=== PATIENT | female | born 1990 | race Caucasian/White ===

== ENCOUNTER 2020-05-09 07:08 | Inpatient (IN) | payer BC, OTHER ==
[2020-05-09 08:15] LABS: Absolute Lymphocytes (CBC) 1.9 K/uL (0.7-4.9); Basophils % 0.6 % (0-1.3); Hematocrit 41.1 % (36.0-45.0); Lymphocytes % 25.7 % (15.3-44.8); MPV 9.8 fL (7.6-11.3); RBC Red Blood Cell Count 4.58 M/uL (3.86-4.86)
[2020-05-09 08:21] LABS: ALT/SGPT 24 U/L (12-78); AST/SGOT 16 U/L (15-37); Albumin 3.3 g/dL (3.4-5.0); Alkaline Phosphatase 115 U/L (45-117); BUN Blood Urea Nitrogen 15 mg/dL (7-18); Bicarbonate 28 mmol/L (21-32); Bilirubin Total 0.5 mg/dL (0.2-1.0); Glucose Level 86 mg/dL (74-106); Potassium 3.9 mmol/L (3.5-5.1); Protein, Total 7.2 g/dL (6.4-8.2); Sodium Level 143 mmol/L (136-145)
--- NOTE | 2020-05-09 08:25 | RAD REPORT ---
EXAM DESCRIPTION: Sundeep Reynolds Left05/09/2020 8:12 am CLINICAL HISTORY: Left leg pain FINDINGS: No fracture is seen. No bony lesion seen. Prominent swelling within the subcutaneous tiss ues of the mid to lower anterior leg
[2020-05-09] MEDS ORDERED: TETANUS & DIPHTHERIA TOX,ADULT 0.5 ML VIAL ONE (08:26)
--- NOTE | 2020-05-09 08:40 | ER ---
Nurse's Notes [facility] Name: Helena Frias Age: 29 yrs Sex: Female : 1990 Arrival Date: 05/09/2020 Time: 07:16 Bed 13 Private MD: Diagnosis: Cellulitis of left lower limb;Left Lower Leg Hematoma Presentation: 05/09 07:40 Chief complaint: Patient states: fell on some stairs 2 weeks ago, injured her left leg, iw has large hematoma with redness, swelling present. Coronavirus screen: At this time, the client does not indicate any symptoms associated with coronavirus-19. Ebola Screen: Patient negative for fever greater than or equal to 101.5 degrees Fahrenheit, and additional compatible Ebola Virus Disease symptoms Patient denies exposure to infectious person. Patient denies travel to an Ebola-affected area in the 21 days before illness onset. No symptoms or risks identified at this time. Initial Sepsis Screen: Does the patient meet any 2 criteria? No. Patient's initial sepsis screen is negative. Does the patient have a suspected source of infection? No. Patient's initial sepsis screen is negative. Risk Assessment: Do you want to hurt yourself or someone else? Patient reports no desire to harm self or others. Onset of symptoms was April 25, 2020. 07:40 Method Of Arrival: Wheelchair iw 07:40 Acuity: JUDITH 3 iw Triage Assessment: 07:20 General: Appears in no apparent distress. comfortable, Behavior is calm, cooperative. rb1 General: Pt. reports that she finished her Amoxicillin and Steroids yesterday.. EENT: Eyes Has bruising and a stitch on the right eye, from a fall two weeks ago.. Neuro: Level of Consciousness is awake, alert, obeys commands, Oriented to person, place, time, situation. Cardiovascular: Capillary refill < 3 seconds. Respiratory: Airway is patent Respiratory effort is even, unlabored, Respiratory pattern is regular, symmetrical, Denies cough, shortness of breath. GI: Patient currently denies diarrhea, nausea, vomiting. : No signs and/or symptoms were reported regarding the genitourinary system. Derm: Skin is red, The wound is swollen and warm to the touch Wound noted leg alonzo. Musculoskeletal: Range of motion: intact in all extremities. Injury Description: Pt. fell down the steps two weeks ago and fractured the right optical floor and got a cut on the left alonzo. 07:20 Pain: Complains of pain in left alonzo Pain currently is 6 out of 10 on a pain scale. rb1 MANAGER CABLE: 07:20 LMP 05/02/2020 rb1 Historical: - Allergies: 07:20 No Known Allergies; rb1 - Home Meds: 07:20 None [Active]; rb1 - PMHx: 08:32 Intellectually Disabled; rb1 09:35 Fractured Right Orbital Floor; iw - PSHx: 07:20 Left arm; rb1 - Immunization history:: Last tetanus immunization: unknown. - Social history:: Smoking status: Patient/guardian denies using. Screenin:20 Abuse screen: Denies threats or abuse. Nutritional screening: No deficits noted. rb1 Tuberculosis screening: No symptoms or risk factors identified. Fall Risk Fall in past 12 months (25 points). No secondary diagnosis (0 pts). IV access (20 points). Ambulatory Aid- None/Bed Rest/Nurse Assist (0 pts). Gait- Normal/Bed Rest/Wheelchair (0 pts) Mental Status- Oriented to own ability (0 pts). Total Sinha Fall Scale indicates High Risk Score (45 or more points). Fall prevention measures have been instituted. Side Rails Up X 2 Placed Close to Nursing Station 1:1 Attendant Assigned Frequent Obs/Assessments Occuring Family Present and informed to notify staff if the need to leave the bedside As available patient and family educated on Fall Prevention Program and Strategies. Assessment: 07:20 General: See triage assessment. rb1 08:20 Reassessment: Patient appears in no apparent distress at this time. No changes from rb1 previously documented assessment. Mother at the bedside. 09:14 Reassessment: Faxed order for Unasyn 3 G IVPB. rb1 09:20 Reassessment: Patient appears in no apparent distress at this time. Patient and/or rb1 family updated on plan of care and expected duration. Pain level reassessed. Patient is alert, oriented x 3, equal unlabored respirations, skin warm/dry/pink. 09:56 Reassessment: Tried to call report but was left on hold. rb1 10:03 Reassessment: Patient appears in no apparent distress at this time. No changes from rb1 previously documented assessment. 10:10 Reassessment: Called report to PACO Ayala. Information from the SBAR was given. All rb1 questions asked and answered. Unasyn was sent to the floor with the pt. Vital Signs: 07:20 BP 121 / 96; Pulse 92; Resp 19; Temp 99.5; Pulse Ox 100% ; Weight 138.35 kg; Height 5 rb1 ft. 4 in. (162.56 cm); 08:20 BP 118 / 76; Pulse 86; Resp 18; Pulse Ox 100% ; rb1 09:20 BP 112 / 78; Pulse 78; Resp 17; Pulse Ox 100% ; rb1 07:20 Body Mass Index 52.35 (138.35 kg, 162.56 cm) rb1 ED Course: 07:16 Patient arrived in ED. bg2 07:19 Carly Judd PA is PHCP. jmm 07:19 Wiley Osullivan MD is Attending Physician. jmm 07:20 Arm band placed on right wrist. rb1 07:20 Patient has correct armband on for positive identification. Bed in low position. Call rb1 light in reach. Side rails up X2. Pulse ox on. NIBP on. Warm blanket given. 07:23 Angelina Rapp, RN is Primary Nurse. rb1 07:53 Inserted saline lock: 22 gauge in right antecubital area, using aseptic technique. rb1 Blood collected. 07:57 Triage completed. iw 07:59 Blood Culture Adult (2) Sent. rb1 08:13 Tib Fib Left XRAY In Process Unspecified. EDMS 08:28 US Extremity Venous Unilateral Ltd In Process Unspecified. EDMS 08:29 Ultrasound completed. Patient tolerated well. Notified ED Physician carly. sg3 08:39 Reynaldo Guerrero MD is Hospitalizing Provider. jmm 10:19 No provider procedures requiring assistance completed. Patient admitted, IV remains in rb1 place. Administered Medications: 08:25 Drug: Tetanus-Diphtheria Toxoid Adult 0.5 ml {[employer]: [employer]. Exp: rb1 10/10/2022. Lot #: [id number]. } Route: IM; Site: right deltoid; 08:40 Follow up: Response: No adverse reaction rb1 09:49 Drug: Unasyn 3 grams Route: IVPB; Infused Over: 30 mins; Site: right antecubital; rb1 10:19 Follow up: IV Status: Infusion continued upon admission rb1 Outcome: 08:40 Decision to Hospitalize by Provider. jmm 10:19 Admitted to [facility]/surg accompanied by tech, family with patient, via stretcher, room 221, rb1 with chart, Report called to PACO Ayala 10:19 Condition: stable 10:19 Instructed on the need for admit. 10:20 Patient left the ED. rb1 Signatures: Dispatcher [employer] EDMS Carly Judd PA PA jmm Williams, Irene, PACO RN iw Paulette Johnson bg2 Angelina Rapp, RN RN rb1 Benita Bruce sg3 Corrections: (The following items were deleted from the chart) 09:35 07:20 PMHx: Fractured Right Optical Floor; rb1 iw
--- NOTE | 2020-05-09 08:41 | EDPHYS ---
Physician Documentation [facility] Name: Helena Frias Age: 29 yrs Sex: Female : 1990 Arrival Date: 05/09/2020 Time: 07:16 Bed 13 Private MD: ED Physician Wiley Osullivan HPI: 05/09 07:34 This 29 yrs old Female presents to ER via Unassigned with complaints of Leg jmm Injury. 07:34 The patient presents with an injury, swelling. Onset: The symptoms/episode jmm began/occurred gradually, 2 week(s) ago. Modifying factors: The symptoms are alleviated by nothing. the symptoms are aggravated by nothing. Associated signs and symptoms: Pertinent positives: swelling, warmth, Pertinent negatives fever. This is a 29 year old female that presents to the ED with swelling to the left lower leg. Patient dell approx 2 weeks ago. Patient sustained an orbital floor fracture of the right eye and an abrasion of the left lower leg. Patient was prescribed amoxicillin. Patient has developed increased redness to the left lower leg. Denies fever. . SERGEANT OF CORRECTIONS: 07:20 LMP 05/02/2020 rb1 Historical: - Allergies: 07:20 No Known Allergies; rb1 - Home Meds: 07:20 None [Active]; rb1 - PMHx: 08:32 Intellectually Disabled; rb1 09:35 Fractured Right Orbital Floor; iw - PSHx: 07:20 Left arm; rb1 - Immunization history:: Last tetanus immunization: unknown. - Social history:: Smoking status: Patient/guardian denies using. ROS: 07:34 Constitutional: Negative for fever, chills, and weight loss, Cardiovascular: Negative jmm for chest pain, palpitations, and edema, Respiratory: Negative for shortness of breath, cough, wheezing, and pleuritic chest pain. 07:34 Skin: Positive for erythema, swelling. 07:34 All other systems are negative. Exam: 07:34 Constitutional: This is a well developed, well nourished patient who is awake, alert, jmm and in no acute distress. Head/Face: atraumatic. Eyes: EOMI, no conjunctival erythema appreciated ENT: Moist Mucus Membranes Neck: Trachea midline, Supple Chest/axilla: Normal chest wall appearance and motion. Cardiovascular: Regular rate and rhythm. No edema appreciated Respiratory: Normal respirations, no respiratory distress appreciated Abdomen/GI: Non distended, soft Back: Normal ROM 07:34 Musculoskeletal/extremity: full dorsalis pulse noted to the left leg, compartments are soft, NVI. 07:34 Skin: erythema noted to the left lower leg, draining hematoma noted, eschar with surrounding erythema noted, non tender to palpation. 07:34 Neuro: Orientation: is normal, Mentation: is normal, Memory: is normal. 07:34 Psych: Behavior/mood is pleasant, cooperative. Vital Signs: 07:20 BP 121 / 96; Pulse 92; Resp 19; Temp 99.5; Pulse Ox 100% ; Weight 138.35 kg; Height 5 rb1 ft. 4 in. (162.56 cm); 08:20 BP 118 / 76; Pulse 86; Resp 18; Pulse Ox 100% ; rb1 09:20 BP 112 / 78; Pulse 78; Resp 17; Pulse Ox 100% ; rb1 07:20 Body Mass Index 52.35 (138.35 kg, 162.56 cm) rb1 MDM: 07:28 Patient medically screened. [facility] 08:39 Data reviewed: vital signs, nurses notes. Counseling: I had a detailed discussion with belinda the patient and/or guardian regarding: the historical points, exam findings, and any diagnostic results supporting the discharge/admit diagnosis, lab results, radiology results, the need for further work-up and treatment in the hospital. ED course: I discussed the patient with Dr. Guerrero whom accepted the admission. . 05/09 07:30 Order name: CBC with Diff; Complete Time: 08:31 [facility] 05/09 07:30 Order name: CMP; Complete Time: 08:31 [facility] 05/09 07:30 Order name: Blood Culture Adult (2) [facility] 05/09 07:30 Order name: Procalcitonin; Complete Time: 08:36 [facility] 05/09 07:30 Order name: Lactate; Complete Time: 08:31 [facility] 05/09 07:30 Order name: US Extremity Venous Unilateral Ltd; Complete Time: 09:14 [facility] 05/09 07:31 Order name: Blood Culture [facility] 05/09 07:31 Order name: Tib Fib Left XRAY; Complete Time: 08:31 [facility] 05/09 07:30 Order name: Saline Lock; Complete Time: 07:58 [facility] 05/09 09:20 Order name: CONS Physician Consult EDMS Administered Medications: 08:25 Drug: Tetanus-Diphtheria Toxoid Adult 0.5 ml {Edi Consultant: [employer]. Exp: rb1 10/10/2022. Lot #: [id number]. } Route: IM; Site: right deltoid; 08:40 Follow up: Response: No adverse reaction rb1 09:49 Drug: Unasyn 3 grams Route: IVPB; Infused Over: 30 mins; Site: right antecubital; rb1 10:19 Follow up: IV Status: Infusion continued upon admission rb1 Disposition: 05/10 05:02 Co-signature as Attending Physician, Wiley Osullivan MD. [facility] Disposition: 05/09/20 08:40 Hospitalization ordered by Reynaldo Guerrero for Observation. Preliminary diagnosis are Cellulitis of left lower limb, Left Lower Leg Hematoma. - Bed requested for Telemetry/MedSurg (observation). - Status is Observation. rb1 - Condition is Stable. - Problem is new. - Symptoms are unchanged. Signatures: Dispatcher [employer] EDPR Garett Judd PA PA Jordyn Conte, PACO ANTONIO Angelina Rapp RN RN [facility] Bhargavi Blood Maurice, MD MD [facility] Corrections: (The following items were deleted from the chart) 05/09 07:32 07:31 CBC with Automated Diff ordered. EDPR EDMS 07:32 07:31 Comprehensive Metabolic Panel ordered. EDPR EDMS 07:32 07:31 Procalcitonin ordered. EDPR EDMS 07:32 07:31 Lactate ordered. EDPR EDPR 09:27 08:40 Hospitalization Ordered by Reynaldo Guerrero MD for Observation. Preliminary eb diagnosis is Cellulitis of left lower limb; Left Lower Leg Hematoma. Bed requested for Telemetry/MedSurg (observation). Status is Observation. Condition is Stable. Problem is new. Symptoms are unchanged. m 09:35 07:20 PMHx: Fractured Right Optical Floor; rb1 iw 09:42 09:27 05/09/2020 08:40 Hospitalization Ordered by Reynaldo Guerrero MD for Observation. eb Preliminary diagnosis is Cellulitis of left lower limb; Left Lower Leg Hematoma. Bed requested for Telemetry/MedSurg (observation). Status is Observation. Condition is Stable. Problem is new. Symptoms are unchanged. eb 10:20 09:42 05/09/2020 08:40 Hospitalization Ordered by Reynaldo Guerrero MD for Observation. rb1 Preliminary diagnosis is Cellulitis of left lower limb; Left Lower Leg Hematoma. Bed requested for Telemetry/MedSurg (observation). Status is Observation. Condition is Stable. Problem is new. Symptoms are unchanged. eb
--- NOTE | 2020-05-09 09:06 | RAD REPORT ---
EXAM DESCRIPTION: USExtremity Venous Uni Ltd05/09/2020 9:01 am CLINICAL HISTORY: left leg pain and swelling. COMPARISON: None. FINDINGS: Left common femoral, superficial femoral, popliteal and posterior tibial veins are compre ssible and demonstrate augmentation. Doppler demonstrates good flow. IMPRESSION: No evidence of deep venous thrombosis involving the left lower extremity.
--- NOTE | 2020-05-09 09:32 | P.HP ---
Certification for Inpatient Patient admitted to: Observation With expected LOS: <2 Midnights Practitioner: I am a practitioner with admitting privileges, knowledge of patient current condition, hospital course, and medical plan of care. Services: Services provided to patient in accordance with Admission requirements found in Title 42 Section 412.3 of the Code of Federal Regulations Patient History Date of Service: 05/09/20 Reason for admission: LLE hematoma, concern for infection History of Present Illness: 29yo female, PMH: obesity, ANA M, developmental delay who presents to the ED with concern for enlarging left lower extremity hematoma. The mom reports over the past several days it has been getting larger and a slow progression of the redness around it. Patient reports that has been some mild discomfort due to the swelling. She denies fevers, chills, fatigue. She reportedly fell 2 weeks ago and suffered a right orbital floor fracture for which she has seen a surgeon in [place] and a left lower extremity abrasion/hematoma. She reports she was told that it would go away on its own, however recently gotten larger. She sent photos to a family member who is a PA who recommended presentation to the ED. In the ED, she was noted to be afebrile, no leukocytosis, negative per calcitonin, lactate: 1.3, labwork rather unremarkable. An x-ray was obtained and there is no fracture seen. The venous Doppler was performed which showed no evidence of DVT. Dr. Pires, General Surgery, was consulted in the ED. Patient will be a brought in under observation for further management. Home medications list reviewed: Yes - Past Medical/Surgical History Diabetic: No -: ANA M -: Obesity -: Developmental Delay -: Right elbow surgery - Family History Family History: Reviewed- Non-Contributory (no h/o bleeding disorders) - Social History Smoking Status: Never smoker Alcohol use: No Place of Residence: Home Review of Systems 10-point ROS is otherwise unremarkable Physical Examination - Physical Exam General: Alert, In no apparent distress, Oriented x3, Obese HEENT: Mucous membr. moist/pink, Sclerae nonicteric Neck: No LAD Respiratory: Clear to auscultation bilaterally, Normal air movement Cardiovascular: Regular rate/rhythm, Normal S1 S2 Gastrointestinal: Soft and benign, Non-distended, No tenderness Musculoskeletal: No tenderness Integumentary: Other (LLE: anterior lower leg: large 10cm x 4cm eschar with surrounding hematoma and slight +blanching erythema. no added warmth compared to RLE / surrounding skin. Recent dried dark red blood noted on lateral leg from corner of eschar.) - Studies Laboratory Data (last 24 hrs) 05/09/20 07:53: Sodium 143, Potassium 3.9, BUN 15, Creatinine 0.54 L, Glucose 86, Total Bilirubin 0.5, AST 16, ALT 24, Alkaline Phosphatase 115 05/09/20 07:53: WBC 7.4, Hgb 13.9, Hct 41.1, Plt Count 271 Assessment and Plan - Advance Directives Does patient have a Living Will: No Does patient have a Durable POA for Healthcare: No Physician Review Additional Text: LLE hematoma, possible infection ANA M Developmental delay LLE hematama, possible infection -general surgery consulted, for possible evacuation. Okay to have a diet for now -unclear erythema is due to inflammation versus evolving infection, SIRS 0/4 -received Unasyn in the ED, can continue for now. No significant risk factors for MRSA, was seen in the ED 2 weeks ago ANA M -CPAP overnight Developmental delay - stable Dispo: pending surgical evaluation / possible evacuation/debridement of hematoma Time Spent Managing Pts Care (In Minutes): 45
[2020-05-09] MEDS ORDERED: AMPICILLIN/SULBACT 3 GM in NA CHLORIDE 0.9% 100 ML IVPB ONE (10:00)
[2020-05-09 10:53] VITALS: BMI 52.3
[2020-05-09] MEDS ORDERED: ACETAMINOPHEN 500 MG TAB PO PRN (11:10)
--- NOTE | 2020-05-09 13:25 | CON ---
Date of Consultation: 05/09/2020 Diagnoses: Cellulitis and infected hematoma with abscess in the left lower extremity. History Of Present Illness: This is the case of a 29-year-old patient. She stated about 2 weeks ago she hit a gate that she has in her hallway at home and developed a contusion of the left anterior le g. This developed into a swelling of the last 2 weeks ago with what looks like is infected hematoma with necrotic skin in front of it. It is an area about 15 x 12 cm. Since it was getting redder, she decided to come to the ER today. Admitted for IV antibiotics and a surgical consult was obtained fo r possible debridement. Past Medical History: Include intellectual disabilities. She has a fracture of the right orbit. Allergies: NONE. Medications: She does not remember any. Family History: Noncontributory. Review of Systems: Ten points otherwise unremarkable. Physical Examination: General: The patient is awake and alert. HEENT: Pupils are equal and reactive, anicteric. Neck: Supple. Chest: Clear. Abdomen: Soft and depressible. Extremities: Bilateral pulses present. Although, in the anterior leg region, patient has an area of necrotic of the skin in about 15 x 12 cm, what it looked like a combination of infected hematoma wit h abscess in the anterior tibial region. All that it going to need to be debrided. Imaging: Tibia and fibula x-rays interpreted by Dr. Tamayo as no fracture. Assessment: This is a 29-year-old patient with a left anterior leg infected hematoma, necrotic wound need debridement with benefits, alternatives, and risks including, but not limited to infection, ble eding, damage to adjacent structures, anesthesia complication, nonhealing wound, DE, and . She also understands this may not relieve the symptoms. She will require wound care for the next few mon ths. PATRICIO/MODL Voice ID: [id number] Report ID: [id number]
[2020-05-09] MEDS: AMPICILLIN/SULBACT 3 GM in NA CHLORIDE 0.9% 100 ML IVPB SCH (16:41)
[2020-05-10] MEDS: AMPICILLIN/SULBACT 3 GM in NA CHLORIDE 0.9% 100 ML IVPB SCH ×2 (00:40→07:51)
[2020-05-10 06:50] LABS: Absolute Lymphocytes (CBC) 1.8 K/uL (0.7-4.9); Basophils % 0.6 % (0-1.3); Hematocrit 40.6 % (36.0-45.0); Lymphocytes % 22.9 % (15.3-44.8); MPV 9.6 fL (7.6-11.3); RBC Red Blood Cell Count 4.52 M/uL (3.86-4.86)
[2020-05-10 07:00] LABS: BUN Blood Urea Nitrogen 16 mg/dL (7-18); Bicarbonate 27 mmol/L (21-32); Glucose Level 91 mg/dL (74-106); Magnesium 2.3 mg/dL (1.8-2.4); Phosphorus 3.1 mg/dL (2.5-4.9); Potassium 4.3 mmol/L (3.5-5.1); Sodium Level 141 mmol/L (136-145)
[2020-05-10] MEDS ORDERED: VANCOMYCIN 2 GM in NA CHLORIDE 0.9% 500 ML IVPB SCH (09:00)
[2020-05-10] MEDS ORDERED: Ringers Lactate 1,000 ML IV ONE (11:11)
--- NOTE | 2020-05-10 11:25 | P.PN ---
Subjective Date of Service: 05/10/20 Chief Complaint: LLE hematoma, concern for infection Subjective: No new changes (slight bloody drainage from LLE this morning after she got out of shower no new complaints) Physical Examination - Vital Signs Temperature: 97.7 F Blood Pressure: 106/67 Pulse: 83 Respirations: 20 Pulse Ox (%): 100 - Physical Exam General: Alert, In no apparent distress, Obese HEENT: Sclerae nonicteric Respiratory: Clear to auscultation bilaterally, Normal air movement Cardiovascular: Regular rate/rhythm, Normal S1 S2 Gastrointestinal: Soft and benign, Non-distended, No tenderness Integumentary: Other (LLE: large hematoma with surrounding erythema on anterior aspect. no active drainage) Neurological: Normal speech, Normal affect Assessment & Plan Physician Review Additional Text: LLE hematoma, possible infection, failed outpatient therapy ANA M Developmental delay LLE hematama, possible infection, failed outpatient therapy -general surgery consulted, for OR today -possible abscess -unclear erythema is due to inflammation versus evolving infection, SIRS 0/4 on admission -received Unasyn in ED, Blood cultures 4/4 positive for gram positive cocci in clusters -recently on amoxicillin, will give vancomycin until final cultures ANA M -CPAP as needed Developmental delay - stable Dispo: OR today, awaiting final cultures, likely dc home tomorrow Time Spent Managing Pts Care (In Minutes): 25
[2020-05-10] MEDS ORDERED: FENTANYL CITR 100 MCG/2 ML ONE (11:40)
[2020-05-10] MEDS ORDERED: MIDAZOLAM HCL 2 MG/2 ML INJ ONE (11:40)
[2020-05-10] MEDS ORDERED: propofoL 200 MG/20 ML VIAL IV ONE (11:40)
[2020-05-10] MEDS ORDERED: LIDOCAINE 1% MPF 5 ML VIAL ONE (11:41)
--- NOTE | 2020-05-10 12:30 | P.BOP ---
Preoperative diagnosis: left leg necrotic wound with cellulitis, abscess Postoperative diagnosis: same Primary procedure: incision drainage and debridement down to muscle of necrotic left leg wound Secondary procedure: 15 x 12 x 2 cm Estimated blood loss: <10cc Specimen: necrotic tissue, abscess Findings: as above Anesthesia: General Complications: None Drain(s): Other Transferred to: Recovery Room Condition: Good
[2020-05-10] MEDS: HYDROMORPHONE HCL 1 MG/ML INJ ONE ×2 (13:00→13:10)
[2020-05-10] MEDS ORDERED: PROMETHAZINE INJ 25 MG/ML AMP ONE (13:10)
[2020-05-10] MEDS: HYDROCODONE/APAP 5/325 MG TAB PO PRN (14:54)
[2020-05-10] MEDS: VANCOMYCIN 2 GM in NA CHLORIDE 0.9% 500 ML IVPB SCH (15:00)
--- NOTE | 2020-05-10 15:22 | OP ---
Date of Procedure: 05/10/2020 Surgeon: Jace Pires MD Preoperative Diagnosis: Left leg necrotic wound with cellulitis and abscess and hematoma. Postoperative Diagnosis: Left leg necrotic wound with cellulitis and abscess and hematoma. Procedure: Incision, drainage and subcutaneous debridement down to muscle of necrotic left leg wound about 15 x 12 x 2 cm. Specimen: Necrotic tissue, abscess culture. Findings: The patient had necrotic skin all over the area of concern and then underneath the fat it got also necrotic and also have a large hematoma with abscess present all that was clean and debrided . This goes all the way down to some of the muscle in the anterior compartment, the bone, although c lose, seems to be intact with no gross deformities. Anesthesia: General plus local. Indications: This is the case of a female who comes to us after several weeks ago hitting the area o f the anterior leg. The area did not improve, developed necrotic tissue, cellulitis, abscess, admitt ed to the hospital, and a surgical consult was obtained for debridement. The benefits, alternatives, and risks of debridement and incision and drainage of abscess fully explained, which include, but no t limited to infection, bleeding, damage to adjacent structures, anesthesia complication, nonhealing wound, FL, and even . She also understands this may not relieve the symptoms. She might need m ore than one surgical intervention, and she will require wound care. Signed a consent. I talked to also to the mom and signed a consent. Description Of Procedure: The patient brought to the operating room, placed in supine position. A t rodolfo-out was called. Left leg was prepped and draped in sterile fashion using an 11 blade after injec ting local anesthetic and after prepping the area in usual sterile fashion. We proceeded to delineat e the area of the tissue and removed that. That let us into a subcutaneous cavity with large am ount of old blood with abscess present going down to the muscle. We debrided the area. The bone see ms to be intact with no gross deformities. The area was profusely irrigated and then the area was pa cked with dry dressing. The patient tolerated the procedure well. The patient was sent to recovery in stable condition. PATRICIO/AAKASH Voice ID: [id number] Report ID: [id number]
[2020-05-10] MEDS ORDERED: ONDANSETRON 4 MG/2 ML VIAL IV PRN (17:26)
[2020-05-11] MEDS: VANCOMYCIN 2 GM in NA CHLORIDE 0.9% 500 ML IVPB SCH ×2 (02:37→15:05)
[2020-05-11 06:31] LABS: Absolute Lymphocytes (CBC) 2.2 K/uL (0.7-4.9); Basophils % 0.7 % (0-1.3); Hematocrit 38.3 % (36.0-45.0); Lymphocytes % 22.8 % (15.3-44.8); MPV 9.9 fL (7.6-11.3); RBC Red Blood Cell Count 4.34 M/uL (3.86-4.86)
[2020-05-11 06:45] LABS: BUN Blood Urea Nitrogen 12 mg/dL (7-18); Bicarbonate 23 mmol/L (21-32); Glucose Level 80 mg/dL (74-106); Potassium 4.2 mmol/L (3.5-5.1); Sodium Level 141 mmol/L (136-145)
[2020-05-11 07:23] LABS: Blood Morphology Comment NOT SEEN (NOT SEEN); Platelet Estimate ADEQ; White Blood Cell Scan OK (OK)
--- NOTE | 2020-05-11 12:54 | PN ---
Date of Progress Note: 05/11/2020 Reason For Service: Status post debridement and drainage of necrotic left leg wound. Subjective: The patient is doing well. No complaint. Tolerating diet. Physical Examination: General: The patient is awake and alert. No distress. Abdomen: Soft and depressible. Extremities: Intact surgical site. Plan: She will be going home with Home Health. [facility] now. Wet-to-dry dressing daily. Leg elevation. p.o. antibiotics. PATRICIO/AAKASH Voice ID: [id number] Report ID: [id number]
--- NOTE | 2020-05-11 18:00 | P.PN ---
Subjective Date of Service: 05/11/20 Chief Complaint: LLE hematoma, concern for infection Subjective: Improving (Patient reports doing well after surgery, and no nausea/vomiting Passing flatus, no shortness of breath Reports minimal pain in her lower leg) Physical Examination - Vital Signs Temperature: 98.0 F Blood Pressure: 106/71 Pulse: 75 Respirations: 18 Pulse Ox (%): 100 - Physical Exam General: Alert, In no apparent distress, Obese HEENT: Mucous membr. moist/pink Neck: Supple Respiratory: Clear to auscultation bilaterally, Normal air movement Cardiovascular: Regular rate/rhythm, Normal S1 S2 Gastrointestinal: Soft and benign, Non-distended, No tenderness Musculoskeletal: Other (Left lower extremity wrapped in surgical dressing) Neurological: Normal speech, Normal affect - Studies Microbiology Data (last 24 hrs): 05/10/20 12:10 Wound - L Leg (Lower) Gram Stain - Final Assessment & Plan Physician Review Additional Text: LLE hematoma, abscess, failed outpatient therapy ANA M Developmental delay LLE hematama, abscess, failed outpatient therapy -s/p evacuation -surgeon documented old blood and abscess, and debridement was done down to the muscle -received Unasyn in ED and switched to vancomycin given Blood cultures 4/4 positive for gram positive cocci in clusters -blood cultures returned positive for CONS -discussed the case with infectious disease, Dr. Acosta, who agreed with vancomycin until sensitivities return ANA M -CPAP as needed Developmental delay - stable Dispo: Likely discharge tomorrow when sensitivities return Will discuss with ID tomorrow Time Spent Managing Pts Care (In Minutes): 35
[2020-05-12] MEDS: VANCOMYCIN 2 GM in NA CHLORIDE 0.9% 500 ML IVPB SCH ×2 (03:07→15:12)
[2020-05-12 06:25] LABS: Absolute Lymphocytes (CBC) 1.8 K/uL (0.7-4.9); Basophils % 0.8 % (0-1.3); Hematocrit 36.9 % (36.0-45.0); Lymphocytes % 21.2 % (15.3-44.8); MPV 10.4 fL (7.6-11.3); RBC Red Blood Cell Count 4.11 M/uL (3.86-4.86)
[2020-05-12 06:42] LABS: BUN Blood Urea Nitrogen 12 mg/dL (7-18); Bicarbonate 22 mmol/L (21-32); Glucose Level 87 mg/dL (74-106); Potassium 4.4 mmol/L (3.5-5.1); Sodium Level 142 mmol/L (136-145)
[2020-05-12] MEDS ORDERED: POLYETHYL GLY 3350 17 GM/DOSE PO ONE (09:28)
[2020-05-12] MEDS: HYDROCODONE/APAP 5/325 MG TAB PO PRN (11:23)
--- NOTE | 2020-05-12 14:03 | P.CNS ---
Date of Consult: 05/12/20 Subjective: Patient is a 29 year old female with history of developmental delay who presents with left lower extremity wound after taking a fall down stairs at home approximately two weeks ago. Patient was seen at another hospital who reported the wound would heal on its own. X-rays did not show evidence of fracture. Patient also found to have bacteremia secondary to Staph Epidermidis which I have been consulted for. - Past Medical/Surgical History Diabetic: No -: ANA M -: Obesity -: Developmental Delay -: Right elbow surgery - Family History Family History: Reviewed- Non-Contributory (no h/o bleeding disorders) - Social History Smoking Status: Never smoker Alcohol use: No Place of Residence: Home Allergies No Known Allergies Allergy (Verified 05/09/20 10:47) Active Medications Acetaminophen (Tylenol -Extra Strength) 500 mg PO Q4HP PRN PRN Reason: Pain scale 2-4 (Mild) Stop: 06/08/20 11:11 Last Admin: 05/11/20 15:09 Dose: 500 mg Documented by: Hydrocodone Bitart/Acetaminophen ([place]mlin 5/325) 1 tab PO Q4HP PRN PRN Reason: Pain scale 5-7 (Moderate) Stop: 06/09/20 13:10 Last Admin: 05/12/20 11:23 Dose: 1 tab Documented by: Vancomycin HCl 2 gm/ Sodium (Chloride) 500 mls @ 250 mls/hr IVPB Q12H TRISTAN; Protocol Stop: 06/09/20 15:01 Last Admin: 05/12/20 03:07 Dose: 500 mls Documented by: Ondansetron HCl (Zofran) 4 mg IV Q6HP PRN PRN Reason: NAUSEA / VOMITING Stop: 06/09/20 17:27 Last Admin: 05/10/20 18:05 Dose: 4 mg Documented by: Sodium Chloride (Normal Saline Flush) 10 ml IV BID TRISTAN Stop: 06/08/20 21:01 Last Admin: 05/12/20 08:58 Dose: 10 ml Documented by: ROS: CV: Denies chest pain RESP: Denies shortness of breath : Denies dysuria GI: Reports constipation Skin: Reports multiple bruises s/p fall and left lower extremity wound for 2 weeks Objective: Temp Pulse Resp BP Pulse Ox 97.9 F 89 18 109/70 97 05/12/20 08:00 05/12/20 08:00 05/12/20 12:23 05/12/20 08:00 05/12/20 12:23 Labs: Na 142, K 4.4, BUN 12, Creat 0.45, Albumin 3.3, WBC 8.6, Hgb 12.6, Hct 36.9 ROS: General: Awake, alert, oriented, pleasant CV: S1,S2 RESP: Good breath sounds ABD: Nontender, bowel sounds present Skin: Bilateral orbital bruising and multiple bruises to upper and lower extremities. Left lower extremity open surgical wound, wound bed with granulation tissue Assessment and plan: No leukocytosis, afebrile Left lower extremity trauma wound, s/p I&D 05/10, recommend to apply medihoney daily Bacteremia secondary to Staph Epidermidis, Vancomycin day 3, continue IV Repeat blood cultures pending Patient will need a total of 2 weeks of antibiotics from negative blood culture results Will consider switching to PO upon discharge Will continue to monitor Thank you for consult Patient discussed with Dr. Acosta
--- NOTE | 2020-05-12 14:41 | P.PN ---
Subjective Date of Service: 05/12/20 Chief Complaint: LLE hematoma, concern for infection Patient has no new complain. She denies pain. Physical Examination - Vital Signs Temperature: 97.9 F Blood Pressure: 109/70 Pulse: 89 Respirations: 18 Pulse Ox (%): 97 - Physical Exam General: In no apparent distress, Obese HEENT: Mucous membr. moist/pink Respiratory: Clear to auscultation bilaterally, Normal air movement Cardiovascular: No edema, Regular rate/rhythm, Normal S1 S2 Gastrointestinal: Normal bowel sounds, Soft and benign Musculoskeletal: No swelling Integumentary: Other (Left lower extremity incised hematoma-dressed.) Neurological: Other (Nonfocal) - Studies Microbiology Data (last 24 hrs): 05/09/20 08:06 Blood - Blood Aerobic Blood Culture - Final Staph Epidermidis 05/09/20 08:06 Blood - Blood Blood Culture Gram Stain - Final 05/09/20 08:06 Blood - Blood Anaerobic Blood Culture - Final Staph Epidermidis 05/09/20 08:06 Blood - Blood Gram Stain - Final 05/09/20 07:53 Blood - Blood Aerobic Blood Culture - Final Staph Epidermidis 05/09/20 07:53 Blood - Blood Blood Culture Gram Stain - Final 05/09/20 07:53 Blood - Blood Anaerobic Blood Culture - Final Staph Epidermidis 05/09/20 07:53 Blood - Blood Gram Stain - Final 05/10/20 12:10 Wound - L Leg (Lower) Gram Stain - Final 05/10/20 12:10 Wound - L Leg (Lower) Culture & Sensitivity - Final Assessment And Plan Physician Review Additional Text: LLE hematoma, abscess, failed outpatient therapy ANA M Developmental delay LLE hematama, abscess, failed outpatient therapy -s/p evacuation -surgeon documented old blood and abscess, and debridement was done down to the muscle -deep tissue wound culture: No growth to date. -continue vancomycin given Blood cultures 4/4 positive for Staph epidermidis. -discussed the case with infectious disease, Dr. Acosta, who agreed with vancomycin until sensitivities return Staph epidermidis bacteremia -vancomycin per infectious disease. -trees to oral antibiotics based on sensitivities on discharge. -repeat blood culture today. ANA M -CPAP as needed Developmental delay - stable
[2020-05-13] MEDS: VANCOMYCIN 2 GM in NA CHLORIDE 0.9% 500 ML IVPB SCH (06:07)
[2020-05-13 10:22] VITALS: O2SAT 98
[2020-05-13 12:04] VITALS: BP 132/60; TEMP 98.1
--- NOTE | 2020-05-13 12:20 | P.PN ---
Date of Service: 05/13/20 Subjective: Patient is a 29 year old female with history of developmental delay who presents with left lower extremity wound after taking a fall down stairs at home approximately two weeks ago. Patient was seen at another hospital who reported the wound would heal on its own. X-rays did not show evidence of fracture. Patient also found to have bacteremia secondary to Staph Epidermidis which I have been consulted for. Patient examined at bedside. Denies nausea, fevers and diarrhea. Objective: Temp Pulse Resp BP Pulse Ox 98.1 F 78 18 132/60 100 05/13/20 12:00 05/13/20 12:00 05/13/20 12:00 05/13/20 12:00 05/13/20 12:00 Labs: Na 142, K 4.4, BUN 12, Creat 0.45, Albumin 3.3, WBC 8.6, Hgb 12.6, Hct 36.9 ROS: General: Awake, alert, oriented, pleasant CV: S1,S2 RESP: Good breath sounds ABD: Nontender, bowel sounds present Skin: Bilateral orbital bruising and multiple bruises to upper and lower extrem ities. Left lower extremity open surgical wound, wound bed with granulation tissue Assessment and plan: No leukocytosis, afebrile Left lower extremity trauma wound, s/p I&D 05/10, recommend to apply medihoney daily Bacteremia secondary to Staph Epidermidis, Likely from leg wound Vancomycin day 4, Upon discharge can switch to Bactrim, will need to monitor CBC and BMP twice weekly Repeat blood cultures show no growth to date 05/12 Patient will need a total of 2 weeks of antibiotics from negative blood culture results Will continue to monitor Patient discussed with Dr. Acosta
--- NOTE | 2020-05-13 15:14 | P.DS ---
Admission Date: 05/10/20 Discharge Date: 05/13/20 Disposition: ROUTINE DISCHARGE Discharge Condition: FAIR Reason for Admission: LLE hematoma, concern for infection Consultations: Infectious disease General surgery Brief History of Present Illness: 29-year-old morbidly obese patient with a history of obstructive sleep was brought to the emergency department due to enlarging hematoma on left leg. There was a concern for infection. The patient was admitted for further management. Hospital Course: Patient admitted to the medical floor and started on antibiotic therapy. Genera l surgery was consulted, the hematoma was evacuated and debridement done. Her blood culture grew Staph epidermidis in full bottles. Infectious Disease was consulted, patient was treated with IV vancomycin. Repeat blood culture on 05/12 is yielded no growth. ID recommended 2 weeks of Bactrim from now. Patient is clinically stable for discharge. She is discharged to follow with her PCP. She will need a BMP and CBCs checked twice a week per infectious disease recommendation. Vital Signs/Physical Exam: Temp Pulse Resp BP Pulse Ox 98.1 F 78 18 132/60 100 05/13/20 12:00 05/13/20 12:00 05/13/20 12:00 05/13/20 12:00 05/13/20 12:00 General: Alert, In no apparent distress, Obese Neck: Supple Respiratory: Clear to auscultation bilaterally, Normal air movement Cardiovascular: No edema, Regular rate/rhythm, Normal S1 S2 Gastrointestinal: Normal bowel sounds, Soft and benign, No tenderness Musculoskeletal: Other (Left leg incised hematoma with clean dressing.) Laboratory Data at Discharge: WBC 8.6 K/uL (4.3-10.9) 05/12/20 05:56 Hgb 12.6 g/dL (12.0-15.0) 05/12/20 05:56 Hct 36.9 % (36.0-45.0) 05/12/20 05:56 Plt Count 234 K/uL (152-406) 05/12/20 05:56 Sodium 142 mmol/L (136-145) 05/12/20 05:56 Potassium 4.4 mmol/L (3.5-5.1) 05/12/20 05:56 BUN 12 mg/dL (7-18) 05/12/20 05:56 Creatinine 0.45 mg/dL (0.55-1.3) L 05/12/20 05:56 Glucose 87 mg/dL (74-106) 05/12/20 05:56 Phosphorus 3.1 mg/dL (2.5-4.9) 05/10/20 06:32 Magnesium 2.3 mg/dL (1.8-2.4) 05/10/20 06:32 Total Bilirubin 0.5 mg/dL (0.2-1.0) 05/09/20 07:53 AST 16 U/L (15-37) 05/09/20 07:53 ALT 24 U/L (12-78) 05/09/20 07:53 Alkaline Phosphatase 115 U/L (45-117) 05/09/20 07:53 Home Medications: Codeine/APAP [Tylenol W/Codeine #3 tab] 1 tab PO Q6HP PRN #20 tab 05/13/20 Sulfamethoxazole/Trimethoprim [Bactrim Ds Tablet] 1 each PO BID #28 tablet 05/13/20 New Medications: Codeine/APAP [Tylenol W/Codeine #3 tab] 1 tab PO Q6HP PRN #20 tab PRN Reason: Pain Sulfamethoxazole/Trimethoprim [Bactrim Ds Tablet] 1 each PO BID #28 tablet Patient Discharge Instructions: You need your blood checked for CBC and BMP twicw weekly. Follow with your PCP within 1 week. Diet: Regular Activity: Ad patel Followup: Robin Acosta MD [ACTIVE - CAN ADMIT] - 1-2 Weeks Time spent managing pt's care (in minutes): 38
[2020-05-13] MEDS: HYDROCODONE/APAP 5/325 MG TAB PO PRN (15:19)
[2020-05-13] MEDS ORDERED: VANCOMYCIN 2 GM in NA CHLORIDE 0.9% 500 ML IVPB SCH (18:00)
== END 2020-05-13 15:55 | disposition home health service (06) | DRG 580 ==
LOC: ER 07:08 → ERHOLD 09:18 → 2ND 10:10 → OBSVTOIN 05-10 13:24
PROVIDERS: ADMIT Hospitalist; ATTEND Internal Medicine
PROC: 0KBT0ZZ Excision of Left Lower Leg Muscle, Open Approach (ICD-10-PCS; principal; 2020-05-10 11:00)
DX: L02.416 Cutaneous abscess of left lower limb (principal); Z68.43 Body mass index [BMI] 50.0-59.9, adult; R78.81 Bacteremia; I96 Gangrene, not elsewhere classified; S80.12XA Contusion of left lower leg, initial encounter; L03.116 Cellulitis of left lower limb; E66.9 Obesity, unspecified; B95.7 Other staphylococcus as the cause of diseases classified elsewhere; G47.33 Obstructive sleep apnea (adult) (pediatric); R62.50 Unspecified lack of expected normal physiological development in childhood; W10.9XXA Fall (on) (from) unspecified stairs and steps, initial encounter
CPT/HCPCS: 36415; 80048; 80053; 80202; 83605; 83735; 84100; 84145; 85025; 87040; 87070; 87075; 87077; 87186; 87205; 88304; 90471; 90714; 93971; 94660; 96365; 99285; G0378; J0295; J1170; J2250; J2405; J2550; J2704; J3010; J3370; J7040; J7120

== ENCOUNTER 2020-08-18 19:45 | Emergency (ER) | payer BC, OTHER ==
--- NOTE | 2020-08-18 21:10 | EDPHYS ---
Physician Documentation [facility] Name: Helena Frias Age: 30 yrs Sex: Female : 1990 Arrival Date: 08/18/2020 Time: 19:46 Bed 24 Private MD: YOLANDA Physician Evan King HPI: 08/18 22:28 This 30 yrs old Female presents to ER via Ambulatory with complaints of kb Itching. 22:28 The patient's rash thought to be caused by an unknown cause. The rash is located on the kb body diffusely. The rash can be described as papular. Onset: The symptoms/episode began/occurred 1 week(s) ago. Associated signs and symptoms: Pertinent positives: itching. Severity of symptoms: At their worst the symptoms were moderate in the emergency department the symptoms are unchanged. The patient has not experienced similar symptoms in the past. The patient has not recently seen a physician. Pt reports rash to entire body that has been itching. States the itching has been getting worse. Also reports open wound to left lower leg that she goes to wound care for. STates it started developing a rash around it that looks like blisters and it is draining. Wound care told them to try benadryl, but they came to have it looked at. Historical: - Allergies: 19:59 No Known Allergies; ll1 - PMHx: 19:59 Fractured Right Orbital Floor; Intellectually disabled; ll1 - PSHx: 19:59 Left arm; ll1 - Immunization history:: Flu vaccine is up to date. - Social history:: Smoking status: Patient denies any tobacco usage or history of. ROS: 22:21 Constitutional: Negative for fever, chills, and weight loss, Cardiovascular: Negative kb for chest pain, palpitations, and edema, Respiratory: Negative for shortness of breath, cough, wheezing, and pleuritic chest pain, Abdomen/GI: Negative for abdominal pain, nausea, vomiting, diarrhea, and constipation, MS/Extremity: Negative for injury and deformity, Neuro: Negative for headache, weakness, numbness, tingling, and seizure. 22:21 Skin: Positive for rash, open wound to left lower leg. Exam: 22:26 Constitutional: This is a well developed, well nourished patient who is awake, alert, kb and in no acute distress. Head/Face: Normocephalic, atraumatic. Chest/axilla: Normal chest wall appearance and motion. Nontender with no deformity. No lesions are appreciated. Cardiovascular: Regular rate and rhythm with a normal S1 and S2. No gallops, murmurs, or rubs. Normal PMI, no JVD. No pulse deficits. Respiratory: Lungs have equal breath sounds bilaterally, clear to auscultation and percussion. No rales, rhonchi or wheezes noted. No increased work of breathing, no retractions or nasal flaring. Abdomen/GI: Soft, non-tender, with normal bowel sounds. No distension or tympany. No guarding or rebound. No evidence of tenderness throughout. MS/ Extremity: Pulses equal, no cyanosis. Neurovascular intact. Full, normal range of motion. Neuro: Awake and alert, GCS 15, oriented to person, place, time, and situation. Cranial nerves II-XII grossly intact. Motor strength 5/5 in all extremities. Sensory grossly intact. Cerebellar exam normal. Normal gait. 22:26 Skin: rash a mild rash is noted, rash can be described as papular, and is diffusely located, open wound to left lower leg that is draining clear fluid. Vital Signs: 19:59 BP 126 / 79; Pulse 92; Resp 18; Temp 98.8; Pulse Ox 98% ; Weight 145.15 kg; Height 5 ll1 ft. 4 in. (162.56 cm); Pain 5/10; 21:50 BP 125 / 82; Pulse 90; Resp 16; Pulse Ox 100% on R/A; vg1 19:59 Body Mass Index 54.93 (145.15 kg, 162.56 cm) ll1 MDM: 20:05 Patient medically screened. kb 22:26 Data reviewed: vital signs, nurses notes. Data interpreted: Pulse oximetry: on room air kb is 98 %. Interpretation: normal. Counseling: I had a detailed discussion with the patient and/or guardian regarding: the historical points, exam findings, and any diagnostic results supporting the discharge/admit diagnosis, the need for outpatient follow up, a family practitioner, to return to the emergency department if symptoms worsen or persist or if there are any questions or concerns that arise at home. 08/18 20:40 Order name: Wound Culture kb Administered Medications: 21:55 Drug: Benadryl 25 mg Route: PO; vg1 21:55 Follow up: Response: Medication administered at discharge. vg1 21:55 Drug: KeFLEX 500 mg Route: PO; vg1 21:55 Follow up: Response: Medication administered at discharge. vg1 Disposition: 08/19 06:49 Co-signature as Attending Physician, Evan King MD I agree with the assessment and jero plan of care. Disposition: 08/18/20 21:09 Discharged to Home. Impression: Rash and other nonspecific skin eruption, Open wound of lower leg. - Condition is Stable. - Discharge Instructions: Rash, [id number], Scabies, Adult. - Prescriptions for Elimite 5 % Topical Cream - apply 1 application by TOPICAL route one time Wash after 12 hours.; 60 gram. Keflex 500 mg Oral Capsule - take 1 capsule by ORAL route every 8 hours for 10 days; 30 capsule. - Medication Reconciliation Form, Thank You Letter, Antibiotic Education, Prescription Opioid Use form. - Follow up: Emergency Department; When: As needed; Reason: Worsening of condition. Follow up: Private Physician; When: 2 - 3 days; Reason: Recheck today's complaints, Continuance of care, Re-evaluation by your physician. Signatures: Dispatcher [employer] Jamia Gonzalez, MACHINE FILLER SHREDDER-C MACHINE FILLER SHREDDER-Evan Menard MD MD cha Garcia, Victoria, RN RN vg1 Alok Stinson RN RN ll1 Corrections: (The following items were deleted from the chart) 08/18 21:59 21:09 08/18/2020 21:09 Discharged to Home. Impression: Rash and other nonspecific skin vg1 eruption; Open wound of lower leg. Condition is Stable. Forms are Medication Reconciliation Form, Thank You Letter, Antibiotic Education, Prescription Opioid Use. Follow up: Emergency Department; When: As needed; Reason: Worsening of condition. Follow up: Private Physician; When: 2 - 3 days; Reason: Recheck today's complaints, Continuance of care, Re-evaluation by your physician. kb
--- NOTE | 2020-08-18 21:10 | ER ---
Nurse's Notes [facility] Name: Helena Frias Age: 30 yrs Sex: Female : 1990 Arrival Date: 08/18/2020 Time: 19:46 Bed 24 Private MD: Diagnosis: Rash and other nonspecific skin eruption;Open wound of lower leg Presentation: 08/18 19:59 Chief complaint: Patient states: Itching to entire body for 1 week. LLE wound infection ll1 seems to getting worse for 1 week again. Seeing wound care every 2 weeks. Coronavirus screen: Client denies travel out of the [place] in the last 14 days. At this time, the client does not indicate any symptoms associated with coronavirus-19. Ebola Screen: Patient denies travel to an Ebola-affected area in the 21 days before illness onset. Onset: The symptoms/episode began/occurred 1 week(s) ago. Anaphylaxis evaluation, no signs or symptoms of anaphylaxis were noted. Initial Sepsis Screen: Does the patient meet any 2 criteria? HR > 90 bpm. No. Patient's initial sepsis screen is negative. Does the patient have a suspected source of infection? Yes: Skin breakdown/wound. Risk Assessment: Do you want to hurt yourself or someone else? Patient reports no desire to harm self or others. Onset of symptoms was August 11, 2020. 19:59 Method Of Arrival: Ambulatory [facility] 19:59 Acuity: JUDITH 3 ll1 Triage Assessment: 20:45 General: Appears in no apparent distress. comfortable, Behavior is calm, cooperative. vg1 Historical: - Allergies: 19:59 No Known Allergies; ll1 - PMHx: 19:59 Fractured Right Orbital Floor; Intellectually disabled; ll1 - PSHx: 19:59 Left arm; ll1 - Immunization history:: Flu vaccine is up to date. - Social history:: Smoking status: Patient denies any tobacco usage or history of. Screenin:40 Abuse screen: Denies threats or abuse. Nutritional screening: No deficits noted. vg1 Tuberculosis screening: No symptoms or risk factors identified. Fall Risk No fall in past 12 months (0 pts). No secondary diagnosis (0 pts). No IV (0 pts). Ambulatory Aid- None/Bed Rest/Nurse Assist (0 pts). Gait- Normal/Bed Rest/Wheelchair (0 pts) Mental Status- Oriented to own ability (0 pts). Total Sinha Fall Scale indicates No Risk (0-24 pts). Assessment: 20:45 General: Appears in no apparent distress. comfortable, Behavior is calm, cooperative. vg1 20:45 Pain: Complains of pain in left alonzo Pain currently is 5 out of 10 on a pain scale. vg1 Neuro: Level of Consciousness is awake, alert, obeys commands, Oriented to person, place, time. Cardiovascular: Capillary refill < 3 seconds in left toes Pulses are palpable in left dorsalis pedis artery. Respiratory: Airway is patent Respiratory effort is even, unlabored, Breath sounds are clear bilaterally. GI: No signs and/or symptoms were reported involving the gastrointestinal system. : No signs and/or symptoms were reported regarding the genitourinary system. EENT: No signs and/or symptoms were reported regarding the EENT system. Derm: Skin has lesions on on left alonzo. Redness and drainage noted. Bruising that is dark purple, on left alonzo, anterior aspect of left ankle and dorsum of left foot. Musculoskeletal: Range of motion: intact in all extremities. 21:45 Reassessment: Patient appears in no apparent distress at this time. No changes from vg1 previously documented assessment. Patient is alert, oriented x 3, equal unlabored respirations, skin warm/dry/pink. Vital Signs: 19:59 BP 126 / 79; Pulse 92; Resp 18; Temp 98.8; Pulse Ox 98% ; Weight 145.15 kg; Height 5 ll1 ft. 4 in. (162.56 cm); Pain 5/10; 21:50 BP 125 / 82; Pulse 90; Resp 16; Pulse Ox 100% on R/A; vg1 19:59 Body Mass Index 54.93 (145.15 kg, 162.56 cm) ll1 ED Course: 19:46 Patient arrived in ED. cl3 19:52 [facility] kb 19:52 Evan King MD is Attending Physician. kb 19:58 Arm band placed on Patient placed in an exam room, on a stretcher. ll1 20:01 Triage completed. ll1 20:38 Felisa Meyers, RN is Primary Nurse. vg1 20:45 Patient has correct armband on for positive identification. Bed in low position. Call vg1 light in reach. Adult w/ patient. 20:47 Wound Culture Sent. jp3 20:47 Wound culture swab sent to lab. jp3 21:50 No provider procedures requiring assistance completed. Patient did not have IV access vg1 during this emergency room visit. Administered Medications: 21:55 Drug: Benadryl 25 mg Route: PO; vg1 21:55 Follow up: Response: Medication administered at discharge. vg1 21:55 Drug: KeFLEX 500 mg Route: PO; vg1 21:55 Follow up: Response: Medication administered at discharge. vg1 Outcome: 21:09 Discharge ordered by . maira 21:50 Discharged to home ambulatory, with family. vg1 21:50 Condition: good 21:50 Discharge instructions given to patient, Instructed on discharge instructions, follow up and referral plans. medication usage, Demonstrated understanding of instructions, follow-up care, medications, Prescriptions given X 2. 21:59 Patient left the ED. vg1 Addendum: 08/23/2020 09:31 Addendum: Culture Results: Positive wound culture. Phone call Attempt #1 Spoke with s s Mother who verbalizes understanding to stop Keflex at this time and to start taking Cipro 500 mg PO BID x 7 days # 14 as ordered by Jamia Bauer NP. Called into [facility] pharmacy in [place] as requested by mother. Signatures: Jamia Bauer, MATERIAL REQUIREMENTS PLANNING MANAGER-C MATERIAL REQUIREMENTS PLANNING MANAGER-Martha Pack, RN RN Bari Massey jp3 Janet Stinson Victoria, RN RN vg1 Alok Stinson RN RN ll1
[2020-08-18] MEDS ORDERED: DIPHENHYDRAMINE 25 MG TAB/CAP ONE (22:10)
[2020-08-18] MEDS ORDERED: CEPHALEXIN 250 MG CAP ONE (22:10)
[2020-08-18 22:15] VITALS: BP 126/79; TEMP 98.8; O2SAT 98
== END 2020-08-18 21:59 | disposition home or self-care (01) ==
LOC: ER 19:45
DX: S81.802A Unspecified open wound, left lower leg, initial encounter (principal)
CPT/HCPCS: 87070; 87077; 87186; 87205; 99283